=== PATIENT | female | born 2000 | race Caucasian/White ===

== ENCOUNTER 2023-06-10 10:37 | Emergency (ER) | payer OTHER, SELFPAY ==
[2023-06-10 11:14] VITALS: BP 104/60; PULSE 82; RESP 18; TEMP 37; O2SAT 100
--- NOTE | 2023-06-10 11:18 | ED.URI ---
HPI - URI/Sore Throat General Stated Complaint: sorethroat Time Seen by Provider: 06/10/23 11:15 Source: patient Mode of arrival: ambulatory Limitations: no limitations History of Present Illness HPI Narrative: Linda is 22-year-old female patient presenting to the clinic today with complaints of a sore throat x1-to 2 days. She reports fever, body aches, chills, headache, sore throat, cough, and nasal congestion. No known exposure to anyone with COVID, flu, or strep. MD elicited complaint: fever, cough, sore throat, rhinorrhea, nasal congestion, sinus pain and other (Cough) Related Data Allergies Allergy/AdvReac Type Severity Reaction Status Date / Time No Known Allergies Allergy Verified 08/23/16 19:18 Review of Systems Review of Systems: Pertinent positives per HPI. Patient denies any rash, headache, visual changes, dizziness, shortness of breath, chest pain, palpitations, nausea, vomiting, diarrhea, constipation, abdominal pain, or any urinary issues. PMFSH Comments At the time of my signature, I reviewed and agree with the nursing past medical, surgical, social, and family history. There is no relevant family history pertinent to the patient complaint. Exam Narrative: General: Well-developed, well nourished, in no apparent distress Head: Normocephalic, atraumatic Eyes: Pupils equally round and reactive to light bilaterally, EOM intact, sclera and conjunctive clear, no discharge, lids normal Ears: TMs intact and clear, ear canals clear, no drainage, grossly hearing normal. Nose: Nares patent, no discharge, no inflammation, no sinus tenderness. Mouth: Oral pharynx without lesions or masses, good dentition, MMM. Neck: Supple, trachea midline, no enlargement of anterior or posterior cervical nodes, no thyroid masses or goiter palpable. Cardio: Regular rate and rhythm, s1 and s2 normal, no murmur appreciated. Resp: Clear to auscultation bilaterally, no rhonchi, rales, wheezing or rubs Course Course Emergency Course: Portions of this record may have been created with voice recognition software. Level of Care: Express Care Visit Vital Signs Vital signs: Vital Signs Temperature 37.0 C 06/10/23 11:14 Pulse Rate 82 06/10/23 11:14 Respiratory Rate 18 06/10/23 11:14 Blood Pressure 104/60 06/10/23 11:14 Pulse Oximetry 100 06/10/23 11:14 Oxygen Delivery Room Air 06/10/23 11:14 Temperature 37.0 C 06/10/23 11:14 Pulse Rate 82 06/10/23 11:14 Respiratory Rate 18 06/10/23 11:14 Blood Pressure 104/60 06/10/23 11:14 Pulse Oximetry 100 06/10/23 11:14 Oxygen Delivery Room Air 06/10/23 11:14 Vital signs reviewed MDM - URI/Sore Throat MDM Narrative Medical decision making narrative: At the time of visit patient is resting comfortably on exam table. Patient is nontoxic appearing. Strep, COVID, and influenza testing was performed and were negative. We will send strep for culture. I suspect patient has URI/pharyngitis/viral syndrome. Supportive measures were discussed with the patient she voiced understanding discharge instructions and agrees to treatment plan. Return precautions were Differential Diagnosis Differential diagnosis: Likely upper respiratory infection, otitis media, sinusitis, viral infection, bronchitis, influenza, pharyngitis and other (COVID) Discharge Plan Discharge Clinical Impression: Acute viral syndrome URI (upper respiratory infection) Qualifiers: URI type: unspecified URI Qualified Code(s): J06.9 - Acute upper respiratory infection, unspecified Pharyngitis Qualifiers: Pharyngitis/tonsillitis etiology: unspecified etiology Qualified Code(s): J02.9 - Acute pharyngitis, unspecified Patient Disposition: Home, Self-Care Condition: Stable Instructions: Antibiotic Form, Pharyngitis (ED), Upper Respiratory Infection (ED), Viral Syndrome (ED) Additional Instructions: Strep, COVID, and influenza testing were all negative. We will se
== END 2023-06-10 11:46 | disposition home or self-care (01) ==
PROVIDERS: Emergency Provider Nurse Practitioner Family; PCP Physician Assistant Medical
DX: J06.9 Acute upper respiratory infection, unspecified (principal); Z20.822 Contact with and (suspected) exposure to COVID-19
CPT/HCPCS: 87081; 87426; 87804; 87880; 99213; C9803; G0463

== ENCOUNTER 2025-02-05 00:47 | Day surgery (SDC) | payer OTHER, SELFPAY ==
[2025-01-29 15:38] VITALS: BMI 26.6
--- NOTE | 2025-01-29 15:51 | PC.NURSE ---
Report to the Outpatient Waiting Room, entrance under the green pavilion located off [facility], at time ___6:00AM____ on date ___02/05/25____. Planned Procedure Time: ___7:30AM .? Time changes happen often and if your time is changed the preop area will call you the afternoon before. - You and your visitor will be asked to self-screen and do not enter if you have any COVID symptoms. Please call surgeon if you need to reschedule. - A mask is optional within the hospital at this time. Patients may have clear liquids (water, carbonated beverages, clear teas, apple juice) until 3 hours prior to surgery (4:30AM) with a maximum of 20 ounces. - No food from midnight until time of surgery and no smoking, or chewing tobacco (or any form of nicotine). No chewing gum, candy or mints. Take only the following medications with a SIP of water on the morning of surgery: NONE DO NOT STOP ANY OF YOUR OTHER PRESCRIPTION MEDICATIONS PRIOR TO SURGERY EXCEPT THE FOLLOWING Hold all vitamins and supplements for 3 days per anesthesiologist. Medications to discontinue per physician HOLD IBUPROFEN PER DR WEBER Date to take last dose Please no make-up, nail argentine, hairspray, perfume, deodorant, or body powder the day of surgery.? No jewelry (including any body piercings) or valuables the day of surgery, leave them at home.? Please take a shower or bath the night before, or the morning of, surgery with an antibacterial soap.? Wear comfortable, loose fitting clothing.? - Jewelry must be removed prior to entering the operating room.? Rings and piercings that are not removed may be cut off. - The hospital will not accept responsibility for valuables.? - Please leave all valuables, including medications, at home the day of surgery. If you are going home after surgery, a licensed pickup driver must drive you home.? - NO public transportation without another adult if you receive anesthesia. - We recommend that an adult stay with you for 24 hours following discharge. - We also recommend that you do not drive, make important decision, drink alcoholic beverages, or take any drugs that were not prescribed by your health care provider for at least 24 hours after your discharge time. Follow any additional instructions given to you from your surgeon. Telephone instructions given to ____PATIENT and asked if any additional questions and then verbalized understanding. Patient advised to call surgeon office or pre surgery nurse liaison [phone] if any additional questions.
[2025-02-05] VITALS (8 sets, daily range): BP systolic 91–110; BP diastolic 54–80; PULSE 59–86; RESP 12–16; TEMP 36.2; O2SAT 98–100
--- OUTSIDE RECORDS SUMMARY | 2025-02-05 00:49 | XMS_ITS | Encounter Summary ---
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 Name Role Phone Jie Phelps MD Primary Care Provider Samantha Hendrickson PA-C Primary Care Provider [phone] Encounter Details Date Type Department Care Team (Late st Contact Info) Description 11/18/2015 Abstract [facility] Conversion Md, Generic Conversion, Social History Tobacco Use Types Packs/Day Years Used Date Smoking Tobacco: Never Assessed Comments Unknown Sex and Gender Information Value Date Recorded Sex Assigned at Not on file Legal Sex Female 11:13 PM CDT Gender Identity Not on file Sexual Orientation Not on file documented as of this encounter Plan of Treatment Not on file documented as of this encounter Visit Diagnoses Not on filedocumented in this encounter Care Teams Gun Perforator Loader Relationship Specialty Start Date End Date Jie Phelps MD [address] [place] [id number] PCP - General PEDIATRICS 07/25/19 03/10/22 Samantha Hendrickson PA-C [address] [place] [address] [address] [place] [address] PCP - General PHYSICIAN MANAGER MECHANICAL MAINTENANCE 03/11/22 documented as of this encounter
--- OUTSIDE RECORDS SUMMARY | 2025-02-05 00:49 | XMS_ITS | Data Portability ---
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 Plan of Treatment Reminders Order Date Submit Date Provider Last Modified By Organization Details Last Modified Time Details Appointments SURG Diagnosti c Lap 2024 07:30A Guy FUNES MD Not available Not available Not available SURG POST OP 2024 08:45A Guy FUNES MD Not available Not available Not available Lab hbcab (hepatiti s B core Ab) igm, serum 2024 025 [facility] (Lab), [address] [facility], [place], [address], 11/24/2024 20:18:27 HBsAg (hepatiti s B surface Ag), serum 2024 025 [facility] (Lab), [address] [place], [address], 11/24/2024 20:18:24 hepatitis C virus Ab, serum 2024 025 [facility] (Lab), [address] [place], [address], 11/24/2024 20:18:24 HIV 1+2 AB + HIV 1 p24 Ag, qualitati ve immunoass ay, serum 2024 025 [facility] (Lab), [address], [place], [address], 11/24/2024 20:18:23 RPR (rapid plasma reagin), serum 2024 025 [facility] (Lab), [address], [place], [address], 11/24/2024 20:18:27 25-hydrox yvitamin D2 + 25-hydrox yvitamin D3, QN, serum or plasma 2024 025 [facility] (Lab), [address], [place], [address], 11/24/2024 20:18:26 17-hydrox yprogeste maxime, QN, serum 2024 025 [facility] (Lab), [address], [place], [address], 11/24/2024 20:18:28 dhea-sulf ate, serum 2024 025 [facility] (Lab), [address], [place], [address], 11/24/2024 20:18:24 estradiol , serum 2024 025 [facility] (Lab), [address], [place], [address], 11/24/2024 20:18:25 FSH (follicle -stimulat ing hormone), serum 2024 025 [facility] (Lab), [address] [place], [address], 11/24/2024 20:18:25 HbA1c (hemoglob in A1c), blood 2024 025 [facility] (Lab), [address] [place], [address], 11/24/2024 20:18:24 lh (luteiniz ing hormone), serum 2024 025 [facility] (Lab), [address], [place], [address], 11/24/2024 20:18:26 progester one, serum 2024 025 [facility] (Lab), [address], [place], [address], 11/24/2024 20:18:25 prolactin , serum 2024 025 [facility] (Lab), [address], [place], [address], 11/24/2024 20:18:25 shbg (sex hormone-b inding globulin) , serum 2024 025 [facility] (Lab), [address], [place], [address], 11/24/2024 20:18:27 TSH, serum or plasma 2024 025 [facility] (Lab), [address], [place], [address], 11/24/2024 20:18:26 testoster one free/test osterone total, ratio, serum 2024 025 [facility] (Lab), [address], [place], [address], 11/24/2024 20:18:27 test, urine 2024 025 [email or web address], [address], [address], [place], [address], 11/07/2024 14:04:23 CT + NG + TV, RNA, unspecifi ed specimen 2024 025 [facility] (Lab), [address], [place], [address], 11/08/2024 12:32:52 Referral None recorded. Procedures None recorded. Surgeries laparosco py, diagnosti c (SURG) 2024 025 [id number] [facility], [address], [place], [address], 12/30/2024 14:51:33 Imaging US, pelvis 2024 025 [email or web address], [place], [address], 11/11/2024 23:09:56 US, transvagi nal 2024 025 [email or web address], [place], [address], 11/11/2024 23:09:56 Medication Orders Slynd 4 mg (28) tablet 2024 025 [id number], [address], [place], [id number], 11/13/2024 10:41:03 Patient TargetsNo targets recorded. Patient InstructionsNo instructions recorded. Reason for Referral None Reported. Results Created Date Observation Date Name Description Value Unit Range Abnormal Flag Note LastModifiedBy Organization Detail LastModifiedTime 11/08/1911/07/2024 CT/GC AND TRICH OMONA S VAGIN BAILEY (RRNA ), URINE chlamydia trachomatis, PCR Negati ve negati ve Not Available [facility] (Lab) [address], [place], [address], 11/08/2024 12:32:52 11/08/1911/07/2024 CT/GC AND TRICH OMONA S VAGIN BAILEY (RRNA ), URINE neisseria gonorrhoeae, PCR Negati ve negati ve Not Available [facility] (Lab) [address], [place], [address], 11/08/2024 12:32:52 11/08/19 25 11/07/2024 CT/GC AND TRICH OMONA S VAGIN BAILEY (RRNA ), URINE trichomonas vaginalis ribosomal RNA (rrna) Negati ve negati ve Not Available [facility] (Lab) [address] [facility], [place], [address], 11/08/2024 12:32:52 11/08/1911/07/2024 HIV 1/2 ANTIG EN/AN TIBOD Y, REFLE X CONFI RMATI ON HIV antigen/anti body Nonrea ctive nonrea ctive HIV-1 antig en and HIV-1 /HIV- 2 antib odies were not detec smith. No labor atory evide nce of HIV infec tion. Not Available [facility] (Lab) [address] [facility], [place], [address], 11/24/2024 20:18:23 11/08/19 25 11/07/2024 HEPAT ITIS B SURFA CE ANTIG EN hepatitis B surface antigen Non-re active non-re active This assay was perfo rmed using [employer] ratio n reage nts and test kits. Value s obtai sophy with other assay metho ds or kits canno t be used inter allison eably . Not Available [facility] (Lab) [address] [facility], [place], [address], 11/24/2024 20:18:24 11/08/19 25 11/07/2024 DHEA SULFA TE DHEA-sulfate 335 ug/dL Femal e Range s Age(y ) Range (ug/d L) 10-15 34-28 0 15-20 65-36 8 20-25 148-4 07 25-35 99-34 0 35-45 61-33 7 45-55 35-25 6 55-65 19-20 5 65-75 9-246 > 75 12-[address] [facility] (Lab) [address] [facility], [place], [address], 11/24/2024 20:18:24 11/08/19 25 11/07/2024 HEPAT ITIS C ANTIB ABDOUL SCREE N, REFLE X TO CONFI RMATI ON hepatitis C antibody Non-re active non-re active Antib odies to HCV Not Detec smith, does not exclu de the possi bilit y of expos ure to HCV. Not Available [facility] (Lab) [address], [place], [address], 11/24/2024 20:18:24 11/08/19 25 11/07/2024 HEMOG LOBIN A1C hemoglobin A1C 4.9 % 4.0-5. 6 The Ameri can Diabe mathew Assoc iatio n recom mends that a prima ry goal of thera py shoul d be a HBA1C of < 7% and that physi cians shoul d reeva luate the treat ment regim en in patie nts with HBA1C value s consi stent ly > 8%. <5.7% Beverly l 5.7 - 6.4% Incre ased risk for diabe mathew >=6.5 % Diagn ostic of diabe mathew <7.0% Goal of thera py >8.0% Actio n sugge sted Not Available [facility] (Lab) [address], [place], [address], 11/24/2024 20:18:24 11/08/19 25 11/07/2024 ESTRA DIOL estradiol 39.7 pg/mL This assay was perfo rmed using [employer] reage nts and test kits. Value s obtai sophy with other assay metho ds or kits canno t be used inter allison eably . Femal e Estra diol Range s: Folli cular phase 12.4- 233 pg/mL Ovula tion phase 41.0- 398 pg/mL Lutea l phase 22.3- 341 pg/mL Postm enopa usal <5-13 8 pg/mL Healt hy Pregn ant Women 1st Trime ster 154-3 243 pg/mL 2nd Trime ster 1561- 35779 pg/mL 3rd Trime ster 8525- >3000 0 pg/mL Not Available [facility] (Lab) [address], [place], [address], 11/24/2024 20:18:25 11/08/19 25 11/07/2024 PROLA CTIN prolactin, total 9.14 NG/mL 4.79-2 3.30 This assay was perfo rmed using [employer] n reage nts and test kits. Value s obtai sophy with other assay metho ds or kits canno t be used inter [facility] . Not Available [facility] (Lab) [address] [facility], [place], [address], 11/24/2024 20:18:25 11/08/19 25 11/07/2024 PROGE STERO NE progesterone 0.18 NG/mL This assay was perfo rmed using [employer] ratio n reage nts and test kits. Value s obtai sophy with other assay metho ds or kits canno t be used inter [facility] . Femal e Proge stero ne Range s: Folli cular phase 0.06- 0.89 ng/mL Ovula tion phase 0.12- 12.00 ng/mL Lutea l phase 1.83- 23.90 ng/mL Postm enopa usal <0.05 -0.13 ng/mL Healt hy Pregn ant Women 1st Trime ster 11.0- 44.30 2nd Trime ster 25.40 -83.3 0 3rd Trime ster 58.70 -214. [address] [facility] (Lab) [address] [facility], [place], [address], 11/24/2024 20:18:25 11/08/19 25 11/07/2024 FSH FSH 8.8 mIU/m L This assay was perfo rmed using [employer] n reage nts and test kits. Value s obtai sophy with other assay metho ds or kits canno t be used inter [facility] . Femal es Folli cular : 3.5-1 2.5 mIU/m L Ovula tion: 4.7-2 1.5 mIU/m L Lutea l: 1.7-7 .7 mIU/m L Postm enopa use: 25.8- 134.8 mIU/m L Not Available [facility] (Lab) [address] [facility] [address], [place], [address], 11/24/2024 20:18:25 11/08/19 25 11/07/2024 LH (LUTE NIZIN G HORMO NE) LH 9.5 mIU/m L This assay was perfo rmed using [employer] ratio n reage nts and test kits. Value s obtai sophy with other assay metho ds or kits canno t be used inter allison eably . Femal es Mid-F ollic ular: 2.4-1 2.6 mIU/m L Mid-C ycle: 14.0- 95.6 mIU/m L Mid-L uteal : 1.0-1 1.4 mIU/m L Postm enopa use: 7.7-5 8.5 mIU/m L Not Available [facility] (Lab) [address] [facility], [place], [address], 11/24/2024 20:18:26 11/08/19 25 11/07/2024 TSH, REFLE X FREE T4 TSH 0.82 uIU/m L 0.30-[address] [facility] (Lab) [address] [place], [address], 11/24/2024 20:18:26 11/08/19 25 11/07/2024 VITAM IN D, 25-OH (TOTA L D2/D3 ) vitamin D, 25-hydroxy, total 62.9 NG/mL 30.0-1 00.0 Sugge stive of Defic iency : <20 ng/mL Sugge stive of Insuf ficie ncy: 20-29 ng/mL Sugge stive of Suffi cienc y: 30-10 0 ng/mL Sugge stive of Toxic ity: >150 ng/mL Not Available [facility] (Lab) [address] [place], [address], 11/24/2024 20:18:26 11/08/19 25 11/07/2024 HUMAN SEX HORMO NE ALEJA NG GLOBU TISH sex hormone binding globulin 15.2 nmole s/L 18.2-[address] [facility] (Lab) [address] [facility], [place], [address], 11/24/2024 20:18:27 11/08/19 25 11/07/2024 HEPAT ITIS B CORE, IGM hepatitis B core IgM antibody Non-re active non-re active IgM anti- HBc not detec smith. Does not exclu de the possi bilit y of expos ure to or infec tion with HBV. Test Perfo rmed by: Dominik pereira rn [facility] [address] [facility] (Lab) [address] [facility], [place], [address], 11/24/2024 20:18:27 11/08/19 25 11/07/2024 RPR SCREE N, REFLE X TITER /CONF IRMAT ION RPR qualitative Nonrea ctive nonrea ctive Not Available [facility] (Lab) [address] [facility], [place], [address], 11/24/2024 20:18:27 11/08/19 25 11/07/2024 TESTO STERO NE, FREE( DIALY SIS) AND TOTAL (LC/M S/MS) testosterone , total 24 NG/dL 2-45 For addit ional infor dario sanchez e refer to http: //[facility] rutledge.que stdia gnost ics.c om/fa q/ Total Testo stero neLCM SMSFA Q165 (This link is being provi ded for infor cricket adan/ educa julián yepez purpo ses only. ) This test was devel oped and its monisha tical perfo rmanc e shayla cteri stics have been deter mined by [facility] Maii JOSEPHINE Osborn. It has not been clear ed or appro dev by the U.S. Food and Drug Admin istra tion. This assay has been valid ated pursu ant to the CLIA regul ation s and is used for clini raysa purpo ses. Not Available [facility] (Lab) [address] [place], [address], 11/24/2024 20:18:27 11/08/19 25 11/07/2024 TESTO STERO NE, FREE( DIALY SIS) AND TOTAL (LC/M S/MS) testosterone , free 4.6 pg/mL 0.1-6. 4 This test was devel emmie and its monisha tical perfo rmanc e shayla cteri stics have been deter mined by [facility]i[place]. It has not been clear ed or appro dev by the U.S. Food and Drug Admin istra tion. This assay has been valid ated pursu ant to the CLIA regul ation s and is used for clini raysa purpo ses. Perfo rming Organ izati on Infor matio n: Site ID: [id number] Name: [facility] elliott vidal [facility] yael Addre ss: [id number] [employer] [address] [employer] [place], [place] Direc tor: Rachael Corrales MD PhD Not Available [facility] (Lab) [address] [place], [address], 11/24/2024 20:18:27 11/08/19 25 11/07/2024 17-OH PROGE STERO NE 17-hydroxypr ogesterone, lc/MS/MS 22 NG/dL Adult Femal e Refer ence Range s for 17-Hy droxy proge stero ne: Pre-M enopa usal Mid Folli cular : 23-10 2 ng/dL Pre-M enopa usal Surge : 67-34 9 ng/dL Pre-M enopa usal Mid Lutea l: 139-4 31 ng/dL Postm enopa usal Phase : < or = 45 ng/dL Pregn deepak: First Trime ster: 78-45 7 ng/dL Secon d Trime ster: 90-35 7 ng/dL Third Trime ster: 144-5 78 ng/dL This test was devel oped and its monisha tical perfo rmanc e shayla cteri stics have been deter mined by [facility]. It has not been clear ed or appro dev by the FDA. This assay has been valid ated pursu ant to the CLIA regul ation s and is used for clini raysa purpo ses. Perfo rming Organ izati on Infor matio n: Site ID: [id number] Name: [facility]/Alfonso abe [facility] johnathan Paul trano , Addre ss: [id number] [place] [address] Direc tor: Colleen de la rosa MD,Ph D,FADI Not Available [facility] (Lab) [address] [facility], [place], [address], 11/24/2024 20:18:28 11/08/19 25 11/07/2024 pregn deepak test, urine HCG negati ve Not Available [place] [address], [place], [address], 11/07/2024 14:04:15 11/12/19 25 11/11/2024 US, pelvi s No observ ation record ed. [email or web address] [place] [address], [place], [address], 11/11/2024 14:11:02 11/12/19 25 11/11/2024 US, trans vagin al No observ ation record ed. [email or web address] [place] [address], [place], [address], 11/11/2024 14:11:14 11/12/19 25 11/11/2024 US, pelvi s No observ ation record ed. SHANE Handy [address], [place], [address], 11/12/2024 14:22:27 Result Notes None recorded. Problems Name Problem SNOMED Code Status Onset Date Resolution Date Notes Provider Name and Address Organization Details Recorded Time Menorrhagia Active 2016 Pubertal menorrhagi a;Recorded Elsewhere: No Locatio n: [facility] Yaz rce: EHR Chroni c: N Practice ID: [id number] Billtiago ble Time: 04:45:00 PM Not Available [facility] 0 17:51:08 Problem Notes None recorded. Procedures Surgical History Date Name Laterality Status Provider Name and Address Organization Details Recorded Time 12/21/2022 Date of Last Pap Smear completed Shelly Hazel [facility] 08/25/2023 10:38:47 Imaging Results None recorded. Procedure Notes None recorded. Medical Equipment None Reported. Allergies No known drug allergies Medications Name Sig Start Date Stop Date Status Note LastModified by Organization Details LastModified Time triamcinolo ne acetonide 0.1 % topical cream APPLY TOPICALLY TO THE AFFECTED AREA TWICE DAILY NEEDED FOR ITCHING 12/21 completed Not Available Not Available Not Available misoprostol 200 mcg tablet 11/07 completed Not Available Not Available Not Available mupirocin 2 % topical ointment APPLY THREE TIMES DAILY FOR 7 DAYS UNTIL RESOLVED 12/21 completed Not Available Not Available Not Available Cytotec 100 mcg tablet Insert 1 tablet vaginally the night prior to IUD insertion at . 11/07 completed Not Available Not Available Not Available ergocalcife rol (vitamin D2) 1,250 mcg (50,000 unit) capsule TAKE 1 CAPSULE BY MOUTH EVERY WEEK DIRECTED 11/07 completed Not Available Not Available Not Available ibuprofen 600 mg tablet TAKE 1 TABLET BY MOUTH THREE TIMES DAILY FOR 3 DAYS NEEDED 11/07 completed Not Available Not Available Not Available amoxicillin 875 mg-potassiu m clavulanate 125 mg tablet 12/21 completed Not Available Not Available Not Available Gissell 0.35 mg tablet 11/13 completed Not Available Not Available Not Available Linzess 72 mcg capsule TAKE 1 CAPSULE BY MOUTH EVERY MORNING active Not Available Not Available No t Available Slynd 4 mg (28) tablet active Not Available Not Available Not Available Vitals Date Recorded Body height Body mass index (BMI) Body weight Systolic And Diastolic Provider Name and Address Organization Details Last Updated DateTime 11/07/2024 157.48 cm 26.9 kg/m2 71323.08 g 96/68 mm[Hg] Saige Molina [facility] 11/07/2024 10:46:48 Date Recorded Body height Body mass index (BMI) Body weight Systolic And Diastolic Provider Name and Address Organization Details Last Updated DateTime 11/13/2024 157.48 cm 26.5 kg/m2 40468.18 g 98/67 mm[Hg] Michelle Connor [facility] 11/13/2024 10:21:29 Date Recorded Body height Body mass index (BMI) Body weight Systolic And Diastolic Provider Name and Address Organization Details Last Updated DateTime 12/02/2024 157.48 cm 26.5 kg/m2 46740.89 g 108/75 mm[Hg] Shelly [facility] 12/02/2024 15:47:11 Date Recorded Body height Body mass index (BMI) Body weight Systolic And Diastolic Provider Name and Address Organization Details Last Updated DateTime 01/27/2025 157.48 cm 27.3 kg/m2 59638.26 g 99/66 mm[Hg] Shelly [facility] 01/27/2025 10:13:54 Social History Question Answer Notes LastModified by Organizat ion Details LastModified Time Tobacco Smoking Status Former Smoker Estrellita meier, [facility] 12/21/2022 14:45:28 Are You Blind Or Do You Have Difficulty Seeing? No Information n ot available 12/21/2022 What Is Your Level Of Caffeine Consumption? Moderate [email or web address] Information not available 11/13/2024 How Much Tobacco Do You Chew? None [email or web address] Information not available 11/13/2024 In The 14 Days Before Symptom Onset, Have You Had Close Contact With A Laboratory-confirm ed COVID-19 While That Case Was Ill? No Information n ot available 08/25/2023 In The 14 Days Before Symptom Onset, Have You Had Close Contact With A Person Who Is Under Investigation For COVID-19 While That Person Was Ill? No Information not available 08/25/2023 Have You Been To An Area Known To Be High Risk For COVID-19? No Information not available 08/25/2023 Are You Deaf Or Do You Have Serious Difficulty Hearing? No Information not available 12/21/2022 What Type Of Diet Are You Following? REGULAR [email or web address] Information n ot available 11/13/2024 What Is The Highest Grade Or Level Of School You Have Completed Or The Highest Degree You Have Received? [id number] [email or web address] Information not available 11/13/2024 Are There Any Guns Present In Your Home? Yes [email or web address] Information not available 11/13/2024 Do You Use Protection During Sex? Always [email or web address] Information not available 11/13/2024 Do You Use Your Seat Belt Or Car Seat Routinely? Yes [email or web address] Information not available 11/13/2024 Do You Have Smoke And Carbon Monoxide Detectors In Your Home? Yes [email or web address] Information not available 11/13/2024 How Much Tobacco Do You Smoke? No [email or web address] Information not available 11/13/2024 Do You Use Sunscreen Routinely? No [email or web address] Information not available 11/13/2024 Do You Have Difficulty Walking Or Climbing Stairs? No Information not available 12/21/2022 Sex: Unknown Functional Status Question Answer Note LastModified by Organizat ion Details LastModified Time Do you use any illicit or recreational drugs? No [email or web address] Information not available 11/13/2024 What is your level of alcohol consumption? Occasional Information not available 12/21/2022 Are you able to walk? [email or web address] Information not available 12/21/2022 Are you able to care for yourself? 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 No Information not available 12/21/2022 What is your exercise level? Occasional [email or web address] Information not available 11/13/2024 Mental Status Question Answer Note LastModified by Organization D etails LastModified Time Do you feel stressed (tense, restless, nervous, or anxious, or unable to sleep at night)? [id number] [email or web address] Information not available 11/13/2024 Family History Relationship Description Onset Age of this Age Resolved Age Notes LastModified by Organization Details LastModified Time Maternal Grandfather Diabetes mellitus [email or web address] Not available 2024 10:15:16 Maternal Grandfather Heart disease [email or web address] Not available 2024 10:15:16 Maternal Grandfather Malignant neoplasm of prostate [email or web address] Not available 2024 10:02:43 Maternal Grandmother Diabetes mellitus [email or web address] Not available 2024 10:15:16 Maternal Grandmother Hypertensive disorder [email or web address] Not available 2024 10:15:16 Maternal Grandmother Heart disease [email or web address] Not available 2024 10:15:16 Mother Hypertensive disorder [email or web address] Not available 2024 10:15:16 Maternal Aunt Malignant tumor of pancreas [email or web address] Not available 2024 10:02:43 Maternal Uncle Heart disease [email or web address] Not available 2024 10:15:16 Paternal Grandmother Malignant tumor of breast [email or web address] Not available 2024 10:15:16 Notes:Maternal aunt: Seizure disorder, Cancer, colon Maternal grandfather: Heart disease, Diabetes mellitus Maternal grandmother: high cholesterol, Hypertension, Diabetes mellitus Mother: high cholesterol Paternal grandfather: Diabetes mellitus Paternal grandmother: Hypertension, high cholesterol, Diabetes mellitus Medical History Condition Response Allergies (Food, seasonal, environmental ) Y Other N Drug/Latex Allergies/Reactions N Blood Transfusion N Breast Cancer N Dermatologic Disorders N Lung Disease N Defects or Inherited Disease N Breast Problem N Gestational Diabetes N Hematologic disorders N Anesthesia Complications N History of STI N Deep Vein Thrombosis N Polycystic ovary syndrome N Anxiety Disorder N Autoimmune disease N Arthritis N Polyps N Infertility N Acid Reflux (GERD) N History of abnormal pap N Cancer N Varicosities N Stroke N Neurologic/Epilepsy N Endometriosis N High Cholesterol N Fibromyalgia N Headaches Y Kidney Disease N Heart Problems N Thyroid Problems N Kidney or Bladder Problems N GI Problems Y Eating Disorder N Anemia N Art (IVF or FET) N Psychiatric Illness N Ovarian Cancer N Diabetes N Pulmonary (TB, Asthma) N Hepatitis/Liver Disease N No Past Medical History N Eczema N Urinary Tract Infection N Abuse/Domestic Violence N Asthma N Trauma/Violence N Depression/ depression N Heart Disease N Pre-Eclampsia N Hypertension N Osteoporosis N Thrombophilias N Gynecological History Statement/Question Response Abnormal Pap N Date of Last Mammogram Flow Light Date of LMP 10/31/2024 Was last menstrual period normal N STIs/STDs Y HPV Vaccine Y Duration of Flow (days) 5 Current Control Method BCPs Are cycles usually normal N Date of Last Colonoscopy Frequency of Cycle (Q days) 36 Sexually Active? Y Menses Monthly Y Age of first menstrual cycle 12 Date of Last Pap Smear 12/21/2022 Sexual Problems? Y Desired Control Method BCPs LMP Definite Obstetrics History GPAL:G 0 P 0 0 0 0 Past Encounters Encounter ID Performer Location Encounter Start Date Encounter Closed Date Diagnosis/Indication Diagnosis SNOMED-CT Code Diagnosis ICD10 Code Diagnosis Note [id number] Muriel Jacobs [facility] [address] [address] 12/21/2022 14:32:16 12/21/2022 15:10:11 Gynecologic examination 39736719 Z01.419 Take Calcium with Vitamin D 1200mg daily if not receiving in daily diet. It is strongly advised to have an annual flu shot and up can obtain at most pharmacies . If you have not had a TDap shot in the last 10 years you should obtain one as well. Discussed with patient & provided with informatio n regarding Gardisil vaccine to prevent the 4 strains for HPV that cause cervical cancer if under age 26. Encourage safe sexual practices, to use condoms and limit partners if not already in a monogamous relationsh ip. Do monthly self breast exams. Have mammogram yearly or every other year depending on family history. BRCA testing is now available for patients with strong genetic history of female cancer. If interested contact the office. Engage in daily exercise of low impact aerobic exercise 45-60 minutes 4-5 times weekly. Avoid tobacco and illicit drugs as well as using moderation with alcohol intake less than 1-2 8 oz beverages daily. This lifestyle behavior pattern will lead to less health conditions and longer life span. If BMI greater than 25 weight watchers or dietary consult advised. Patient received above instructio ns, and questions have been answered. If you have any questions please call or respond to this email. Patient was made aware of the patient portal and may obtain a paper copy of today's plan if desired. Pap sent STD Screen sent Genetic Screen discussed Colon Screen na Dexa Screen na Routine Labs na [id number] Muriel Jacobs [facility] [address] [address] 08/25/2023 10:25:42 08/25/2023 11:44:18 Irregular periods [id number] N92.6 The patient and I discussed the various causes of abnormal uterine bleeding, including polyps, fibroids, hyperplasi a, atypia, anovulatio n, etc. We reviewed the typical evaluation with labs, pelvic US and possible endometria l biopsy. Briefly discussed the options available for treatment (depending on the results of evaluation ) such as hormonal treatment (OCPs, progestins ), Mirena, endometria l ablation, and surgery. We spent more than 30 minutes face to face. Will consider trial of BC for regulation of menses/hor ruthann. Female hirsutism [id number] 9 L68.0 Increase in the coarse dark hairs that grow on the body in places ladies don't get them usually. Vitamin D deficiency 347 99031 E55.9 Nausea 052395734 R11.0 R14.0 Suspect of a gluten intoleranc e with voiced nausea/ext jazzy bloating/g eneral feeling of abd discomfort and not feeling well.Red meat has also seemed to be an issue for her as well. [id number] Mike Funes MD [facility] [address],[place] [address] 08/31/2023 17:28:53 08/31/2023 18:11:54 Abnormal uterine bleeding [id number] 9100 N93.9 [id number] Muriel Jacobs [facility] [address],[place] [address] 09/05/2023 17:45:58 09/05/2023 18:33:13 Irregular periods 31446520 N92.6 Discussed all control options and pt would like mirena/Kyl eena IUD (will let us know when arrives). I have discussed in detail all risks and benefits including risk of infection and perforatio n. She understand s she will need to contact office with next menses or may abstain, complete serum HCG day before placement, if neg can have IUD placed next day. Aware of need to verify with insurance device coverage. Literature given. All questions answered to patient satisfacti on. Time spent in visit is a total of 30 mins with at least 50% of visit consisting of counseling and review of plan of care. Painless r ectal bleeding [id number] K62.5 Celiac's panel negBecause of her prominent GI sx's and voicing recal bleeding that has happened more than once; not caused by hemorrhoid s that we are aware of externally ; we agreed to a GI consult for this issue. Counseled on Possible causes and GI issues including (but not limited too): IBS, IBD, Constipati on chronic.Re ferral placed and faxedShe will contact their office for an appointmen t that works with her schedule. [id number] LUCI Beasley [facility] [address],[place] [address] 11/07/2024 10:29:05 11/07/2024 14:06:51 Irregular periods 61412864 N92.6 updated health hx obtained and reviewed todaydiscu ssed long h/o painful periodslab s and pelvic u/s orderedgc/ ct/trich testing sentdiscus sed possible endometrio sis given hxbriefly reviewed management options pending resultswil l RTC for pelvic u/s and then f/u to review results/di scuss next steps Time spent in visit is a total of 30 mins with at least 50% of visit consisting of counseling and review of plan of care. Venereal d isease screening [id number] Z11.3 Vitamin D deficiency 347 25693 E55.9 Sexually t ransmitted infectious disease 5283645 A64 [id number] Mike Funes MD [facility] [address],[place] [address] 11/11/2024 10:03:14 11/11/2024 10:38:49 Irregular periods 20837475 N92.6 [id number] LUCI Beasley [facility] [address],[place] [address] 11/13/2024 10:13:34 11/13/2024 11:29:07 Dysmenorrhea 065285233 N94.6 Today we reviewed her updated pelvic u/s and labs results - all wnlreviewe d long h/o dysmenorrh ea and dyspareuni adiscussed possibilit y of endometrio sis based on her historyrev iewed management options, discussed hormonal contracept anais options, consult offered to discuss endometrio sis and possible surgical options furtheropt s to start slynd as well as schedule consult with Dr. King sent, r/b/a reviewedMD consult scheduled with Dr. Funes Time spent in visit is a total of 25 mins with at least 50% of visit consisting of counseling and review of plan of care. Pain in pelvis 13227567 R10.2 Dyspareunia 98359184 N94 .10 [id number] Mike Funes MD [facility] [address] [address] 12/02/2024 15:33:48 12/03/2024 06:30:46 Endometriosis (clinical) 918148314 N80.9 Pain in pelvis 63046579 R10.2 This patient is a 27-year-ol d female who presents for pelvic pain. Patient also has irregular bleeding. We talked about endometrio sis in detail. Patient is concerned about endometrio sis. We talked about the etiology, natural history, treatment of endometrio sis. We talked about her symptoms and her history in detail. She has a history that is very consistent with endometrio sis. We talked about diagnostic laparoscop y in detail we talked about her irregular bleeding. We talked about her laboratory evaluation . We talked about PCOS. Talked about normal menstrual cycle. We talked about her history in detail. Talked about treatment, etiology, natural history of PCOS. We reviewed ultrasound images. Her ovaries appear polycystic to some degree. I spent over 40 minutes on this patient's care in total. Talked about to very complex issues. We agreed to diagnostic laparoscop y. The patient understand s the procedure. The procedure was described to the patient in great detail. the patient also understand s the risks. The risks were also explained in detail. She understand s that injuries May occur during surgery. She understand s these injuries can result in hospitaliz ation, more surgery, and severe illness. She understand s there is risk of hemorrhage and infection. Polycystic ovary syndrome [id number] E28.2 [id number] Mike Funes MD [facility] [address] [address] 01/27/2025 10:01:19 01/27/2025 12:06:19 Pain in pelvis 29311290 R10.2 this patient is a 24-year-ol d female with pelvic pain. We have agreed to perform diagnostic laparoscop y. She understand s the risks, benefits, and alternativ es. She has completed the informed consent process and is ready to proceed. Health Concerns Section Related Observation LastModified by Organization Detai ls LastModified Time None Recorded Concern Status LastModified by Organization Details LastModified Time None Recorded Advance Directives Directive None Recorded Payers Insurance Date Sequence Insurance Name Policy Number Policy Raymundo Covered Member ID Raymundo Member ID Guarantor Name 02/02/2025 1 [facility] Hannahabimbola Martinezs [id number] Linda Pinon 08/22/2023 1 [employer] (POS II) [id number] Alvin Pinon [id number] Linda Pinon 10/11/2022 1 [facility] Hannahabimbola Martinezs [id number] [facility] Date Note Type Note Provider Name and Address Organization Details Recorded Time 11/07/2024 text/html 24yo [id number] for evaluation of irregular/painful periodsperiods painful since menarche, cramping extending to her legs and backflow alternatives (some periods heavy/some light)for the past 6 months has been having irregular periods - will skip months or have 2 periods in 1 monthSA - uses condoms LUCI Beasley [address], [place], [address], [facility] 11/07/2024 14:05:57 11/13/2024 text/html 24yopresents for f/u to review resultssee HPI from 11/07/2024 (painful periods, pelvic pain outside of her periods, pain with IC) LUCI Beasley [address], [place], [address], [facility] 11/13/2024 11:26:42 12/02/2024 text/html This patient is a 27-year-old female who presents for pelvic pain. Patient also has irregular bleeding. We talked about endometriosis in detail. Patient is concerned about endometriosis. We talked about the etiology, natural history, treatment of endometriosis. We talked about her symptoms and her history in detail. She has a history that is very consistent with endometriosis. We talked about diagnostic laparoscopy in detail we talked about her irregular bleeding. We talked about her laboratory evaluation. We talked about PCOS. Talked about normal menstrual cycle. We talked about her history in detail. Talked about treatment, etiology, natural history of PCOS. We reviewed ultrasound images. Her ovaries appear polycystic to some degree. I spent over 40 minutes on this patient's care in total. Talked about to very complex issues. We agreed to diagnostic laparoscopy. The patient understands the procedure. The procedure was described to the patient in great detail. the patient also understands the risks. The risks were also explained in detail. She understands that injuries May occur during surgery. She understands these injuries can result in hospitalization, more surgery, and severe illness. She understands there is risk of hemorrhage and infection. Mike Funes MD [address], [place], [address], [facility] 12/02/2024 19:05:37 01/27/2025 text/html 24-year-old fema le with pelvic pain. We have agreed to perform diagnostic laparoscopy. The patient understands the procedure. The procedure was described to the patient in great detail. the patient also understands the risks. The risks were also explained in detail. She understands that injuries May occur during surgery. She understands these injuries can result in hospitalization, more surgery, and severe illness. She understands there is risk of hemorrhage and infection. Mike Funes MD [address], [place], [address], [facility] 01/27/2025 11:54:51 OBGyn Episode No OBEpisode recorded.
--- OUTSIDE RECORDS SUMMARY | 2025-02-05 00:49 | XMS_ITS | Encounter Summary ---
Author Organization [facility] Address [facility] [place] [address] Care Team Providers Care Transactional Paralegal Name Role Phone Jie Phelps MD Primary Care Provider Samantha Hendrickson PA-C Primary Care Provider [phone]- [phone] Encounter Details Date Type Department Care Team (Late st Contact Info) Description 01/08/2016 Abstract [facility] Clinics Conversion Md, Generic Conversion, Social History [...] on filedocumented in this encounter Care Teams Transactional Paralegal Relationship Specialty Start Date End Date Jie Phelps MD [address] [place] [address] PCP - General PEDIATRICS 07/25/19 03/10/22 Samantha Hendrickson PA-C [address] [place] [address] [address] [place] [address] PCP - General PHYSICIAN EDGERMAN 03/11/22 documented as of this encounter
--- OUTSIDE RECORDS SUMMARY | 2025-02-05 00:49 | XMS_ITS | Clinical Summary ---
Author Organization [facility] Address [facility] [place] [address] Care Team Providers Care Central Office Associate Name Role Phone Samantha Hendrickson PA-C Primary Care Provider [phone]- [phone] Allergies No known active allergies Medications azithromycin 250 MG tablet Take 2 tablets by mouth on day one then 1 daily for four days. 6 tablet 9 Active triamcinolone (KENALOG) 0.1 % cream Apply topically 2 (two) times daily as needed. itching 30 g Active Social History Tobacco Use Types Packs/Day Years Used Date Smoking Tobacco: Never Smokeless Tobacco: Never Alcohol Use Standard Drinks/Week Comments No 0 (1 standard drink = 0.6 oz pur e alcohol) AUDIT-C Answer Date Recorded Frequency of Alcohol Consumption Never 07/25/2019 Average Number of Drinks Not on file 019 Frequency of Binge Drinking Not on file 07/01 Comments No Sex and Gender Information Value Date Recorded Sex Assigned at Not on file Legal Sex Female 11:13 PM CDT Gender Identity Not on file Sexual Orientation Not on file Last Filed Vital Signs Vital Sign Reading Time Taken Comments Blood Pressure 104/57 03/11/2022 1:03 PM CDT Pulse 75 03/11/2022 1:03 PM CDT Temperature 36.7 C (98 F) 03/11/2022 1:03 PM CDT Respiratory Rate 20 03/11/2022 1:03 PM CDT Oxygen Saturation 99% 03/11/2022 1:03 PM CDT Inhaled Oxygen Concentration - - Weight 68 kg (150 lb) 03/11/2022 1:03 PM CDT Height 157.5 cm (5' 2) 03/11/2022 1:03 PM CDT Body Mass Index 27.44 03/11/2022 1:03 PM CDT Plan of Treatment Health Maintenance Due Date Last Done Comments Cervical Cancer Screening Pa p Smear (Age 21 to 29) Every 3 Years 2000 Cervical Cancer Screening 2000 Annual Physical 09/29/2003 Hepatitis C 2018 Hepatitis B Vaccines (1 of 3 - 19+ 3-dose series) 09/29/2019 DTaP, Tdap and Td Vaccines ( 2 - Td or Tdap) 02/07/2022 02/08/2012 COVID-19 Vaccine (2 - 2023-2 5 season) 2024 07/25/2021 HPV Vaccines Completed 08/09/2012, 04/10/2012, 02/08/2012 Meningococcal Vaccine Completed 04/19/2018 , 04/10/2012 Meningococcal B Vaccine Aged Out No l onger eligible based on patient's age to complete this topic Pneumococcal Vaccine: Pediatrics (0 to 5 Years) and At-Risk Patients (6 to 49 Years) Aged Out No longer eligible b ased on patient's age to complete this topic RSV Immunizations Under 20 Months Aged Out No longer eligible b ased on patient's age to complete this topic Insurance AETNA AETNA Care Teams Central Office Associate Relationship Specialty Start Date End Date Samantha Hendrickson PA-C [address] [place] [address] PCP - General PHYSICIAN COOK CHILL TECHNICIAN 03/11/22
--- OUTSIDE RECORDS SUMMARY | 2025-02-05 00:49 | XMS_ITS | Encounter Summary ---
Author Organization [facility] Address [facility] [place] [address] Care Team Providers Care Melt Down Furnace Operator Name Role Phone Jie Phelps MD Primary Care Provider Samantha Hendrickson PA-C Primary Care Provider [phone]- [phone] Encounter Details Date Type Department Care Team (Late st Contact Info) Description 10/30/2015 Abstract [facility] Clinics Conversion Md, Generic Conversion, Social History [...] on filedocumented in this encounter Care Teams Melt Down Furnace Operator Relationship Specialty Start Date End Date Jie Phelps MD [address] [place] [address] PCP - General PEDIATRICS 07/25/19 03/10/22 Samantha Hendrickson PA-C [address] [place] [address] [address] [place] [address] PCP - General PHYSICIAN REGISTERED LAND SURVEYOR 03/11/22 documented as of this encounter
--- OUTSIDE RECORDS SUMMARY | 2025-02-05 00:49 | XMS_ITS | Clinical Summary ---
Author Organization [facility] Address [address] [place] [address] Care Team Providers Care Mix House Tender Name Role Phone Jie Navarro MD Primary Care Provider Source Comments [facility],non-owned Affiliates and Associated Physician Practices is amultiple site organization consisting of ambulatory clinics and hospital sitesin [place], [place], [place] and [place]. This disclosure is being madepursuant to the Care Everywhere program and may not contain all information available regarding this patient. Last updated 18.[facility] Allergies No known active allergies Medications * Be aware that medications may not be up to date on this document. Alwaysverify current medications with the patient. TYLENOL CHILDRENS MELTAWAYS PO Take 160 mg by mouth. Active Active Problems Problem Noted Date Diagnosed Date Abdominal pain, acute 12/06/2009 Family History Medical History Relation Name Comments Other Other [place]ized in [place] December 2008 [facility] [place] Inhaled gases and needed oxygen/observation overnight. Followed up with MD at . 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 Gender Identity Not on file Sexual Orientation Not on file Last Filed Vital Signs Vital Sign Reading Time Taken Comments Blood Pressure 110/72 12/17/2018 9:18 AM CDT Pulse 81 12/14/2016 6:03 PM CDT Temperature 36.9 C (98.4 F) 12/14/2016 6:03 PM CDT Respiratory Rate 16 12/17/2018 9:18 AM CDT Oxygen Saturation 97% 12/17/2018 9:18 AM CDT Inhaled Oxygen Concentration - - Weight 66.7 kg (147 lb) 12/17/2018 9:18 AM CDT Height 158.8 cm (5' 2.5) 12/17/2018 9:18 AM CDT Body Mass Index 26.46 12/17/2018 9:18 AM CDT Plan of Treatment Health Maintenance Due Date Last Done Comments HIV SCREENING 09/29/2015 HPV VACCINE (1 - 3-dose series) 09/29/2015 CHLAMYDIA/GONORRHEA SCREENING 2016 HEPATITIS C SCREENING 09/24/2018 DTAP/TDAP/TD VACCINES (1 - Tdap) 09/29/2019 HEPATITIS B VACCINE (1 of 3 - 19+ 3-dose series) 09/29/2019 COVID-19 VACCINE (1 - 2023-2 5 season) 2024 DEPRESSION SCREENING 07/31/2024 INFLUENZA VACCINE (Season Ended) 2025 ZOSTER VACCINE (1 of 2) 2050 HIB VACCINE Aged Out No longer eligi ble based on patient's age to complete this topic MENINGOCOCCAL (Group B) VACC INE SHARED DECISION-MAKING Aged Out No longer eligibl e based on patient's age to complete this topic MENINGOCOCCAL GROUPS A/C/Y/W VACCINE Aged Out No longer eligible b ased on patient's age to complete this topic PNEUMOCOCCAL VACCINE Aged Out No long er eligible based on patient's age to complete this topic Advance Directives Documents on File Type Date Recorded 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
--- NOTE | 2025-02-05 06:44 | P.PNAN_ITS ---
Anes - Initial Pre Proc Eval Procedure: Operation Date: 02/05/25 07:30 Proposed Procedures p Diagnostic Laparoscopy - Mike Funes MD Date/Time: 02/05/25 06:44 Surgeon: Mike Funes MD Pre Op Diagnosis: pelvic & perineal pain Patient Data Age: 24 Gender: F Height: 1.57 m Weight: 66 kg Allergies Allergy/AdvReac Type Severity Reaction Status Date / Time No Known Allergies Allergy Verified 01/29/25 15:36 Home Medications ?Medication ?Instructions ?Recorded ?Confirmed ?Type ibuprofen 600 mg tablet 600 mg PO Q6H PRN pain 12/06/23 01/29/25 History drospirenone (contraceptive) 4 mg 1 tablet PO DAILY 01/29/25 01/29/25 History (28) tablet (Slynd) linaclotide 72 mcg capsule 72 mcg PO QAM PRN constipation 01/29/25 01/29/25 History (Linzess) Patient hx anesthesia problems: none Family hx anesthesia problems: none Results Review: All pre-operative results and documents have been reviewed as part of the pre- operative evaluation. [facility] Past Medical History Medical History Low vitamin D level Abdominal pain Irritable bowel syndrome with constipation Rectal bleeding Family History Family History Mother Hypertension Grandparent Diabetes mellitus Heart disease Hypertension Social History Social History Smoking status: Never smoker Alcohol intake: current Alcohol use details: Social Substance use: never Substance use type: does not use Living arrangements: alone Spiritual care concerns: No Anes - Eval Final PreProcedure Day of Procedure 02/05/25 06:44 Patient weight: overweight Heart: regular rate and rhythm Lungs: clear to auscultation Airway: Mallampati scale class II Neurological: alert and oriented Last oral intake: >/= 8 hours ASA classification: II Emergent: no Anesthetic plan: proceed Anesthesia type and monitoring: general ETT and standard monitoring Results Review: All pre-operative results and documents have been reviewed as part of the pre- operative evaluation. Informed Consent: The patient's anesthetic plan and its attendant risks and benefits were discussed with the patient/family/POA. Questions were solicited and answers provided to the satisfaction of the patient/family/POA.
[2025-02-05] MEDS: ACETAMINOPHEN 500 MG TABLET 1000 MG PO (06:45)
[2025-02-05] MEDS: LACTATED RINGERS 1,000 ML 30 ML IV CONT ×2 (06:50→09:33)
[2025-02-05] MEDS: KETOROLAC 15 MG/ML VIAL (*BKC) IV PUSH (06:55)
[2025-02-05 07:12] LABS: BEDSIDEPREGUCG Negative (Negative)
--- NOTE | 2025-02-05 07:22 | WPDHPUPDATE1 ---
History and Physical Update Update Date/Time: 02/05/25 07:22 History and Physical has been reviewed, including an updated exam of the patient. There are NO changes in the patient's condition. Risks, benefits, and alternatives have been discussed and questions answered. Patient agrees to proceed with procedure.
--- NOTE | 2025-02-05 08:23 | S_PTH ---
PATIENT: Linda Pinon LOC: [facility] U#:[id number] AGE/SX: 24/F ROOM: RE02/05/[address]: Mike Funes MD : 2000 BED: DIS: 02/05/2025 SPEC #: [id number] RECD: 02/05/25 10:33 STATUS: SRIKANTH REQ #: [id number] FANTA: 02/05/25 08:[address]: Mike Funes DEPT: [facility] Surgical RECD BY: Gracie Mensah ENTERED: 02/05/25 10:34 SP TYPE: Surgical OTHR DR: Samantha Hendrickson PA-C Tissues: A - Peritoneum Procedures: Gross and Microscopic Level 4
[2025-02-05] MEDS: fentaNYL CITRATE INJ (*CRX) 100 MCG/2 ML VIAL 25 MCG IV PUSH ×6 (08:49→09:12)
--- NOTE | 2025-02-05 09:13 | W.PM.PROC2 ---
Procedure Note - Detailed Date of Procedure 02/05/25 Pre-op Diagnosis pelvic & perineal pain Post-op Diagnosis Same Procedure Performed Diagnostic laparoscopy, resection of endometriosis. Surgeon Mike Funes MD Anesthesia General Indications Pelvic pain Findings Hemoperitoneum, mildly dilated colon, diffuse scarring of the left hemipelvis with inflammation Description of Procedure The patient was taken to the operating room. She was prepped and draped in the dorsal lithotomy position after induction general anesthesia. A 5 mm incision was made with a scalpel on the abdominal skin in the left upper quadrant of the abdomen. A 5 mm trocar was inserted into the intra-abdominal cavity under direct visualization the scope. In the same fashion a 5 mm left lower quadrant trocar was inserted and a 5 mm infraumbilical trocar was inserted. Left ovary was suspended using the laparoscopic needle Passer. Suture was placed through the left lower quadrant of the abdomen and through the ovary. It was held with a hemostat to suspend the ovary on the left. Peritoneum left hemipelvis was then removed. The ureter was identified and dissected out. The the peritoneum was removed from the uterine artery distally to the pelvic brim proximally and from the uterosacral ligament to the suspensory ligament the ovary. This is done with blunt sharp dissection. The specimens taken at the left lower quadrant trocar site. The cyst dissected site was covered with Interceed. The pelvis was irrigated. The pneumoperitoneum was reduced. The trocars were removed. Skin was closed with subcuticular 4 micro. The patient's incisions were covered with Dermabond. She was taken recovery room in stable condition. Sponge lap and needle counts were correct x2. Complications No immediate complications Condition Stable Disposition Same day
[2025-02-05] MEDS: oxyCODONE HCL (*CRX) 5 MG TAB IR PO (10:00)
== END 2025-02-05 10:35 | disposition home or self-care (01) ==
PROVIDERS: PCP Physician Assistant Medical; Visit Provider Obstetrics & Gynecology
PROC: (CPT 49320; principal; 2025-02-05 07:30)
DX: K66.1 Hemoperitoneum (principal); K59.39 Other megacolon; E55.9 Vitamin D deficiency, unspecified; K58.1 Irritable bowel syndrome with constipation; G89.18 Other acute postprocedural pain; Z79.1 Long term (current) use of non-steroidal anti-inflammatories (NSAID); Z80.42 Family history of malignant neoplasm of prostate; Z80.0 Family history of malignant neoplasm of digestive organs; Z80.3 Family history of malignant neoplasm of breast; Z82.49 Family history of ischemic heart disease and other diseases of the circulatory system
CPT/HCPCS: 58662; 88305; A9270; J1100; J1885; J2003; J2250; J2405; J2704; J3010; J7030; J7120